=== PATIENT | male | born 1970 | race African-American/Black ===

== ENCOUNTER 2019-01-13 18:34 | Emergency (ER) | payer OTHER ==
[~2019-01-13] VITALS: Ht 172.7 cm; Wt 93.2 kg
[2019-01-13] MEDS ORDERED: COD30 PO (18:39)
[2019-01-13] MEDS ORDERED: PredniSONE 20 MG TABLET PO ONE (20:15)
[2019-01-13] MEDS ORDERED: KETOROLAC TROMETHAMINE 60 MG/2 ML VIAL IM ONE (20:15)
[2019-01-13] MEDS ORDERED: METHOCARBAMOL 500 MG TABLET PO ONE (20:15)
[2019-01-13 22:46] VITALS: BP 117/63
== END 2019-01-13 22:48 | disposition home or self-care (01) ==
LOC: EMS 18:36
DX: S33.5XXA Sprain of ligaments of lumbar spine, initial encounter (principal); W20.8XXA Other cause of strike by thrown, projected or falling object, initial encounter; Y93.89 Activity, other specified; Y92.89 Other specified places as the place of occurrence of the external cause; Y99.8 Other external cause status
CPT/HCPCS: 72131; 96372; 99284; J1885; J7512